=== PATIENT | female | born 1975 | race Caucasian/White ===

== ENCOUNTER → 2020-06-22 | Outpatient (CLI) | payer OTHER ==
[~2020-06-22] MED LIST: BRILINTA 90 MG90 MG PO; COREG 3.125M3.125 MG PO; ECOTRIN81 MG PO; LEVEMIR100 UNIT/1 SC; LEVEMIR100 UNIT/1 SQ; LIPITOR80 MG PO; LISINOPRIL2.5 MG PO; MOVANTIK25 MG PO; NEURONTIN 400400 MG PO; NOVOLOG SC; NOVOLOG100 UNIT/1 SQ; TRAZODONE HCL50 MG PO; VISTARIL50 MG PO; WELLBUTRIN XL150 MG PO
== END ==
LOC: KOH-I 14:17
DX: S93.324A Dislocation of tarsometatarsal joint of right foot, initial encounter (principal); X58.XXXA Exposure to other specified factors, initial encounter
CPT/HCPCS: 73630

== ENCOUNTER → 2020-06-29 | Outpatient (CLI) | payer OTHER | LOC: KOH-I 12:53 | DX: Z01.818 Encounter for other preprocedural examination (principal); I25.10 Atherosclerotic heart disease of native coronary artery without angina pectoris | CPT/HCPCS: 93926 ==

== ENCOUNTER → 2020-07-13 | Outpatient (CLI) | payer OTHER | LOC: KOH-I 13:11 | DX: S92.311D Displaced fracture of first metatarsal bone, right foot, subsequent encounter for fracture with routine healing (principal); S92.321D Displaced fracture of second metatarsal bone, right foot, subsequent encounter for fracture with routine healing; S92.331D Displaced fracture of third metatarsal bone, right foot, subsequent encounter for fracture with routine healing; S92.341D Displaced fracture of fourth metatarsal bone, right foot, subsequent encounter for fracture with routine healing; X58.XXXD Exposure to other specified factors, subsequent encounter | CPT/HCPCS: 73630 ==